=== PATIENT | female | born 1995 | race Caucasian/White ===

== ENCOUNTER 2018-02-06 11:57 | Outpatient (CLI) | payer SELFPAY ==
[2013-10-13 02:12] VITALS: BP 108/75
--- NOTE | 2018-02-06 13:18 | Diagnostic Imaging Report ---
JOCELYNN BOND [facility] [id number] [facility] [address] [place], [place]. [address] Report Submission Date: Feb 06, 2018 12:56:07 PM CDT Patient Study Name: AARON MONTESINOS Date: Feb 06, 2018 12:01:45 PM CDT Modality Type: DX Gender: F Description: CHEST : 89 Institution: [facility] Physician: JOCELYNN BOND Examination: PA and lateral chest. History: Evaluate lung lindsay. CHRONIC NON-PRODUCTIVE COUGH X 1 YEAR (Hx) Findings: PA lateral chest demonstrate a normal cardiac and mediastinal silhouette. No focal infiltrate. No blunting of the costophrenic margins. Osseous structures are appropriate for age. Impression: No acute pulmonary process. Electronically signed on Feb 06, 2018 12:56:07 PM CDT by: Carmine WARNER
== END 2018-02-06 12:00 ==
LOC: RAD 11:57
PROVIDERS: ATTEND Family Medicine
DX: R05 Cough (principal)
CPT/HCPCS: 71046

== ENCOUNTER 2019-04-24 14:55 | Outpatient (CLI) | payer MEDICAID ==
[2013-10-13 02:12] VITALS: BP 108/75
== END 2019-04-24 14:57 ==
LOC: LABRHC 14:55
PROVIDERS: ATTEND Family Medicine
DX: N89.8 Other specified noninflammatory disorders of vagina (principal)
CPT/HCPCS: 87491; 87591

== ENCOUNTER 2019-05-22 16:00 | Outpatient (CLI) | payer MEDICAID ==
[2013-10-13 02:12] VITALS: BP 108/75
== END 2019-05-22 16:05 ==
LOC: LABRHC 16:00
PROVIDERS: ATTEND Family Medicine
DX: N89.8 Other specified noninflammatory disorders of vagina (principal)
CPT/HCPCS: 87491; 87591